=== PATIENT | male | born 1985 | race Caucasian/White ===

== ENCOUNTER 2019-09-24 15:42 | Emergency (ER) | payer OTHER ==
[~2019-09-24] VITALS: Ht 175.3 cm; Wt 99.8 kg
[2019-09-24] MEDS ORDERED: ZOFRAN8 MG PO (15:58)
[2019-09-24] MEDS ORDERED: PROTONIX40 M2 PO (15:58)
[2019-09-24] MEDS ORDERED: PHENERGAN 25 MG25 MG PO (15:58)
[2019-09-24] MEDS ORDERED: SEROQUEL400 MG PO (15:59)
[2019-09-24] MEDS ORDERED: SEROQUEL 50 MG50 M1 PO (15:59)
[2019-09-24] MEDS ORDERED: REMERON 30 MG T30 MG PO (15:59)
[2019-09-24] MEDS ORDERED: ALPRAZOLAM XR2 MG PO (15:59)
[2019-09-24] MEDS ORDERED: LASIX 40 MG TAB40 MG PO (16:00)
[2019-09-24] MEDS ORDERED: SUBOXONE 8 MG-1 EAC3 SUBLING (16:00)
[2019-09-24] MEDS ORDERED: PRILOSEC OTC20 MG PO (16:00)
[2019-09-24] MEDS ORDERED: KLOR-CON M2020 MEQ PO (16:01)
[2019-09-24 19:14] LABS: ABSOLUTE NEUTROPHILS 2.7 thou/uL (1.4-8.2); BASOPHILS 0.8 % (0.0-2.0); EOSINOPHILS 11.8 % (0.0-3.0); HEMATOCRIT 39.4 % (42.0-52.0); HEMOGLOBIN 13.4 gm/dL (14.0-18.0); LYMPHOCYTES 35.1 % (24.0-44.0); MCH 29.2 pg (26.0-34.0); MCV 85.9 fL (80.0-100.0); MONOCYTES 9.8 % (1.0-8.0); PLATELET COUNT 184 thou/uL (150-400); POLYS 42.5 % (36.0-66.0); RBC 4.59 mil/uL (4.50-6.00); RDW 13.3 % (10.5-14.5); WBC 6.3 thou/uL (4.0-11.0)
[2019-09-24 19:23] LABS: ANION GAP 8 mmol/L (7-16); BUN 24 mg/dL (7-18); CALCIUM 9.3 mg/dL (8.5-10.1); CHLORIDE 101 mmol/L (98-107); CO2 27 mmol/L (21-32); CREATININE 1.5 mg/dL (0.7-1.3); GLUCOSE 78 mg/dL (74-106); POTASSIUM 4.6 mmol/L (3.5-5.1); SODIUM 136 mmol/L (136-145)
[2019-09-24] MEDS ORDERED: KEFLEX500 M1 PO (19:32)
[2019-09-24 19:37] LABS: DIRECT BILIRUBIN < 0.1 mg/dL (<0.1-0.2); SGOT 38 U/L (15-37); SGPT 26 U/L (30-65); TOTAL BILIRUBIN 0.4 mg/dL (<0.1-1.0); TOTAL PROTEIN 7.5 g/dL (6.4-8.2)
[2019-09-24 19:59] VITALS: BP 131/65
== END 2019-09-24 20:00 | disposition home or self-care (01) ==
LOC: ER 15:42
PROVIDERS: Emergency Medicine
DX: R60.0 Localized edema (principal); X58.XXXA Exposure to other specified factors, initial encounter; Y93.89 Activity, other specified; Y92.89 Other specified places as the place of occurrence of the external cause; Y99.8 Other external cause status